=== PATIENT | male | born 1985 | race Caucasian/White ===

== ENCOUNTER → 2016-12-01 | Outpatient (CLI) | payer BC ==
[2016-12-01 13:40] LABS: BASO % 0.4 % (0.0-1.0); EOS % 0.6 % (0.0-3.0); LARGE UNSTAINED CELL # 0.1 K/mm3 (0.0-0.4); LARGE UNSTAINED CELL % 1.6 % (0.0-4.0); LYMPH # 2.3 K/mm3 (1.5-4.5); LYMPH % 24.4 % (24.0-44.0); MEAN CORPUSCULAR HEMOGLOBIN 31.5 pg (27.0-33.0); MEAN CORPUSCULAR HGB CONC 35.7 g/dl (32.0-36.5); MEAN CORPUSCULAR VOLUME 88.4 fl (80.0-96.0); MONO # 0.5 K/mm3 (0.0-0.8); MONO % 5.4 % (0.0-5.0); NEUTROPHILS % 67.6 % (36.0-66.0); PLATELET COUNT, AUTOMATED 218 k/mm3 (150-450); RED CELL DISTRIBUTION WIDTH 12.4 % (11.5-14.5); WHITE BLOOD COUNT 8.9 K/mm3 (4.0-10.0)
[2016-12-01 13:57] LABS: ALBUMIN/GLOBULIN RATIO 1.08 (1.00-1.93); ALKALINE PHOSPHATASE 50 U/L (45-117); ALT/SGPT 16 U/L (12-78); ANION GAP 8 MEQ/L (8-16); AST/SGOT 9 U/L (15-37); BILIRUBIN,TOTAL 0.4 MG/DL (0.2-1.0); BLOOD UREA NITROGEN 10 MG/DL (7-18); CALCIUM LEVEL 9.6 MG/DL (8.5-10.1); CARBON DIOXIDE LEVEL 29 MEQ/L (21-32); CHLORIDE LEVEL 107 MEQ/L (98-107); CREATININE FOR GFR 0.94 MG/DL (0.70-1.30); FREE T4 1.21 NG/DL (0.76-1.46); GLOMERULAR FILTRATION RATE > 60.0 (>60); GLUCOSE, FASTING 104 MG/DL (70-105); POTASSIUM SERUM 4.8 MEQ/L (3.5-5.1); SODIUM LEVEL 144 MEQ/L (136-145); TOTAL PROTEIN 7.7 GM/DL (6.4-8.2)
--- NOTE | 2016-12-01 20:55 | REP ---
Clinical: Abnormal weight loss . Comparison: None . Technique: PA and lateral. Findings: The mediastinum and cardiac silhouette are normal. The lung bragg are clear and without acute consolidation, effusion, or pneumothorax. The skeletal structures are intact and normal. Impression: 1. No acute cardiopulmonary process. Signed by Vj Nava MD 12/01/2016 08:47 P
== END ==
LOC: M SMT 11:00
PROVIDERS: ATTEND Physician Assistant
DX: R63.4 Abnormal weight loss (principal); F41.1 Generalized anxiety disorder

== ENCOUNTER 2018-03-03 09:55 | Outpatient (RCR) | payer BC | END 2018-03-04 | LOC: M OUTALCOH 09:55 | DX: Z03.89 Encounter for observation for other suspected diseases and conditions ruled out (principal) ==

== ENCOUNTER 2018-03-10 14:21 | Outpatient (RCR) | payer BC | END 2018-04-04 | LOC: M OUTALCOH 14:21 | PROVIDERS: ATTEND Psychiatry & Neurology Psychiatry | DX: Z03.89 Encounter for observation for other suspected diseases and conditions ruled out (principal) ==

== ENCOUNTER → 2018-03-24 | Outpatient (REF) | payer BC | LOC: M LAB REF 09:23 | PROVIDERS: ATTEND Physician Assistant | DX: J02.9 Acute pharyngitis, unspecified (principal) ==

== ENCOUNTER 2019-04-24 14:41 | Emergency (ER) | payer BC ==
[~2019-04-24] VITALS: Ht 182.9 cm; Wt 74.0 kg
[2019-04-24] MEDS ORDERED: PERCOCET 5MG/325MG TAB PO ONE (16:30)
[2019-04-24 16:55] LABS: BASO # 0.1 10^3/uL (0.0-0.2); BASO % 0.5 % (0.0-1.0); EOS % 0.3 % (0.0-3.0); HEMATOCRIT 45.2 % (42.0-52.0); LYMPH # 2.2 10^3/uL (1.5-5.0); LYMPH % 19.4 % (24.0-44.0); MEAN CORPUSCULAR HEMOGLOBIN 28.8 pg (27.0-33.0); MEAN CORPUSCULAR HGB CONC 33.2 g/dl (32.0-36.5); MEAN CORPUSCULAR VOLUME 86.8 fl (80.0-96.0); MONO # 0.6 10^3/uL (0.0-0.8); MONO % 5.6 % (0.0-5.0); NEUTROPHILS # 8.5 10^3/uL (1.5-8.5); NEUTROPHILS % 73.9 % (36.0-66.0); PLATELET COUNT, AUTOMATED 244 10^3/uL (150-450); RED BLOOD COUNT 5.21 10^6/uL (4.30-6.10); WHITE BLOOD COUNT 11.5 10^3/uL (4.0-10.0)
--- NOTE | 2019-04-24 17:02 | REP ---
Left knee four views : There is no fracture or dislocation. Mineralization and joint spaces are normal. A small bone cysts noted in the distal femur incidentally. There are no calcifications or foreign bodies. This questionably a suprapatellar effusion. Correlate with clinical findings. If felt clinically indicated, this could be confirmed by ultrasound or CT or MRI. Impression: Questionable joint effusion. Small bone cyst. Electronically Signed by Chase Avery MD 04/24/2019 04:54 P
[2019-04-24 17:08] LABS: BLOOD UREA NITROGEN 10 MG/DL (7-18); CALCIUM LEVEL 9.4 MG/DL (8.5-10.1); CARBON DIOXIDE LEVEL 26 MEQ/L (21-32); CHLORIDE LEVEL 104 MEQ/L (98-107); CREATININE FOR GFR 1.02 MG/DL (0.70-1.30); GLOMERULAR FILTRATION RATE > 60.0 (>60); GLUCOSE, FASTING 98 MG/DL (70-100); POTASSIUM SERUM 4.1 MEQ/L (3.5-5.1); SODIUM LEVEL 138 MEQ/L (136-145); URIC ACID 5.6 MG/DL (3.5-7.2)
[2019-04-24] MEDS ORDERED: LIDOCAINE 1% SDV INJ 30 ML VIAL SC SCH (17:30)
[2019-04-24] MEDS ORDERED: LIDOCAINE 2% MDV 20 ML VIAL SC ONE (18:15)
[2019-04-24] MEDS ORDERED: LIDOCAINE 1% MDV 20ML VIAL As Ordered ONE (18:19)
[2019-04-24 18:53] LABS: CRYSTALS, BODY FLUID NONE SEEN (NONE SEEN); SOURCE, BODY FLUID LFT KNEE; SOURCE, BODY FLUID CRYSTALS LFT KNEE; SYNOVIAL FLUID COLOR YELLOW (YELLOW)
[2019-04-24] MEDS ORDERED: LIDOCAINE 1% MDV 20ML VIAL SC ONE (19:00)
[2019-04-24 19:06] LABS: SOURCE, BODY FLUID GLUCOSE LFT KNEE; SOURCE, BODY FLUID URIC ACID LFT KNEE
[2019-04-24] MEDS ORDERED: BACT800T5 PO (20:27)
[2019-04-24] MEDS ORDERED: PERC5TAB12 PO (20:27)
[2019-04-24] MEDS ORDERED: COLC1TAB13 PO (20:27)
[2019-04-24] MEDS ORDERED: BACTRIM 160MG/800MG DS TAB PO ONE (20:30)
[2019-04-24] MEDS ORDERED: COLCHICINE 0.6 MG TAB PO ONE (20:30)
[2019-04-24 20:34] VITALS: BP 148/89
[2019-04-25 12:35] LABS: BODY FLUID RHEUMATOID SCREEN NEGATIVE (NEGATIVE)
[2019-04-25 12:36] LABS: MUCIN CLOT TEST 4+ (4+)
== END 2019-04-24 20:53 | disposition home or self-care (01) ==
LOC: M ED 14:41
DX: L03.116 Cellulitis of left lower limb (principal); M25.462 Effusion, left knee; M85.68 Other cyst of bone, other site; F17.200 Nicotine dependence, unspecified, uncomplicated; Z79.899 Other long term (current) drug therapy

== ENCOUNTER → 2020-08-08 | Outpatient (REF) | payer BC ==
[~2020-08-08] MED LIST: BACT800T5 PO; COLC0.6T47 PO; PERC5TAB12 PO
== END ==
LOC: M LAB REF 21:15
PROVIDERS: ATTEND Physician Assistant
DX: J02.9 Acute pharyngitis, unspecified (principal)

== ENCOUNTER → 2020-08-14 | Outpatient (REF) | payer BC | LOC: M LAB REF 09:53 | PROVIDERS: ATTEND Physician Assistant | DX: R19.7 Diarrhea, unspecified (principal); K92.1 Melena ==

== ENCOUNTER 2020-10-23 08:35 | Emergency (ER) | payer BC ==
[~2020-10-23] VITALS: Ht 182.9 cm; Wt 72.7 kg
[2020-10-23] MEDS ORDERED: VANC125C10 (08:42)
[2020-10-23] MEDS ORDERED: NS 1,000 ML IV ONE (09:10)
[2020-10-23 09:37] LABS: BASO # 0.1 10^3/uL (0.0-0.2); BASO % 1.1 % (0.0-1.0); EOS # 0.1 10^3/uL (0.0-0.5); EOS % 0.8 % (0.0-3.0); HEMATOCRIT 48.9 % (42.0-52.0); HEMOGLOBIN 17.1 g/dl (13.5-17.5); LYMPH # 1.8 10^3/uL (1.5-5.0); LYMPH % 28.3 % (24.0-44.0); MEAN CORPUSCULAR VOLUME 91.4 fl (80.0-96.0); MONO # 0.5 10^3/uL (0.0-0.8); MONO % 7.8 % (2.0-8.0); NEUTROPHILS % 61.5 % (36.0-66.0); PLATELET COUNT, AUTOMATED 236 10^3/uL (150-450); RED BLOOD COUNT 5.35 10^6/uL (4.30-6.10); WHITE BLOOD COUNT 6.5 10^3/uL (4.0-10.0)
[2020-10-23 10:39] LABS: ALBUMIN 3.8 GM/DL (3.2-5.2); ALT/SGPT 45 U/L (12-78); BILIRUBIN,DIRECT 0.2 MG/DL (0.0-0.2); BILIRUBIN,TOTAL 0.7 MG/DL (0.2-1.0); BLOOD UREA NITROGEN 9 MG/DL (7-18); CALCIUM LEVEL 9.2 MG/DL (8.5-10.1); CARBON DIOXIDE LEVEL 24 MEQ/L (21-32); CHLORIDE LEVEL 109 MEQ/L (98-107); CREATININE FOR GFR 1.02 MG/DL (0.70-1.30); GLOMERULAR FILTRATION RATE > 60.0 (>60); GLUCOSE, FASTING 96 MG/DL (70-100); LIPASE 149 U/L (73-393); POTASSIUM SERUM 4.1 MEQ/L (3.5-5.1); SODIUM LEVEL 141 MEQ/L (136-145); TOTAL PROTEIN 7.5 GM/DL (6.4-8.2)
[2020-10-23] MEDS ORDERED: ISOVUE-370 76% 100ML VIAL As Ordered ONE (10:41)
--- NOTE | 2020-10-23 11:24 | REP ---
INDICATION: abd pain, diarrhea, h/o c.diff. COMPARISON: None. TECHNIQUE: Bolus 100 mL Isovue 370 with coronal and sagittal reconstructions provided. FINDINGS: CT abdomen: Lung bases show no acute infiltrate effusion or nodule. Some minor dependent atelectatic change deep sulcus left lower lobe. Heart is not enlarged. There is no pericardial thickening or effusion and no definite hiatal hernia. There is no hepatosplenomegaly, focal hepatic or splenic mass nor intrahepatic biliary dilatation. No upper abdominal ascites. The gallbladder shows no calcified stone or mass. Pancreas shows no abnormal ductal dilatation, calcification, mass, peripancreatic adenopathy or fluid collection. Adrenal glands are normal. Kidneys show symmetric enhancement without mass, stone, cyst or hydronephrosis no perinephric edema. The aorta is without aneurysm or dissection. No periaortic, mesenteric or other retroperitoneal pathologic sized lymph adenopathy. Some of proximal small bowel loops slight dilatation and wall thickening as a nonspecific finding. There are no dilated loops with air-fluid levels, mass or mesenteric edema/fluid. There is a retrocecal appendix evident which is normal. The right, transverse, flexures and left colon were unremarkable. No inflammatory changes to suggest colitis or diverticulitis in the abdominal portion of colon. Lung window review of all CT slices shows no perforation or free air. The bone windows show the lumbar spine, posterior elements and visualized ribs intact. CT pelvis: The bony sacrum, SI joints, pelvis and hips were unremarkable. The distal left colon and sigmoid shows some muscular hypertrophy or wall thickening but this is mild and without evidence for a diverticulosis. Mild distal colitis cannot be excluded. Bladder shows normal distention without wall thickening, mass or stone the distal ureters show no dilatation or stone. There is no ventral or inguinal hernia nor pathologic sized inguinal adenopathy. No pelvic lymphadenopathy. Small bowel loops in the pelvis were unremarkable. IMPRESSION: 1. Appendix is normal in the colon from cecum to the mid left colon is unremarkable. 2. Distal left colon and sigmoid show some muscular hypertrophy or mild wall thickening. I cannot completely exclude possibility of early colitis. There is no ascites, perforation or abscess. 3. Some nonspecific wall thickening of proximal jejunal loops in the left upper quadrant but without inflammatory changes in the adjacent mesentery. 4. No abdominal or pelvic adenopathy or mass. Solid organs in the upper abdomen are unremarkable. The gallbladder as well as the stomach were intact. <Electronically signed by Emir Armando > 10/23/20 1125
[2020-10-23 12:20] VITALS: BP 163/90
== END 2020-10-23 12:25 | disposition home or self-care (01) ==
LOC: M ED 08:35
DX: K51.918 Ulcerative colitis, unspecified with other complication (principal); R19.7 Diarrhea, unspecified; F17.200 Nicotine dependence, unspecified, uncomplicated; F12.10 Cannabis abuse, uncomplicated; Z86.19 Personal history of other infectious and parasitic diseases
CPT/HCPCS: 74177; 80048; 80076; 83605; 83690; 85025; 96360; 96361; 99284; Q9967

== ENCOUNTER → 2020-11-06 | Outpatient (REF) | payer BC ==
[~2020-11-06] MED LIST changes: +VANC125C10
== END ==
LOC: M LAB REF 14:05
PROVIDERS: ATTEND Physician Assistant
DX: R10.9 Unspecified abdominal pain (principal); R19.7 Diarrhea, unspecified

== ENCOUNTER → 2021-03-05 | Outpatient (CLI) | payer BC | LOC: M OUTALCOH 08:27 | PROVIDERS: ATTEND Psychiatry & Neurology Psychiatry | DX: Z03.89 Encounter for observation for other suspected diseases and conditions ruled out (principal) ==

== ENCOUNTER 2021-03-19 13:23 | Outpatient (RCR) | payer BC | END 2021-04-04 | LOC: M OUTALCOH 13:23 | PROVIDERS: ATTEND Psychiatry & Neurology Psychiatry | DX: F10.20 Alcohol dependence, uncomplicated (principal); Z72.0 Tobacco use ==

== ENCOUNTER 2021-04-30 15:00 | Outpatient (RCR) | payer BC | END 2021-05-05 | LOC: M OUTALCOH 15:00 | PROVIDERS: ATTEND Psychiatry & Neurology Psychiatry | DX: F10.20 Alcohol dependence, uncomplicated (principal); Z72.0 Tobacco use ==

== ENCOUNTER 2021-05-14 15:00 | Outpatient (RCR) | payer BC | END 2021-06-02 | LOC: M OUTALCOH 15:00 | PROVIDERS: ATTEND Psychiatry & Neurology Psychiatry | DX: F10.20 Alcohol dependence, uncomplicated (principal); Z72.0 Tobacco use ==

== ENCOUNTER → 2021-06-04 | Outpatient (CLI) | payer OTHER ==
[~2021-06-04] MED LIST changes: +ISOVUE-300 61% 50ML VIAL As Ordered ONE; +LIDOCAINE 1% MDV 20ML VIAL As Ordered ONE; +PROHANCE 279.3MG/ML 5ML VIAL As Ordered ONE
== END ==
LOC: M RADPRO 06:35
PROVIDERS: ATTEND Physician Assistant Surgical
DX: R93.7 Abnormal findings on diagnostic imaging of other parts of musculoskeletal system (principal); S43.005A Unspecified dislocation of left shoulder joint, initial encounter
CPT/HCPCS: 23350; 73040; 73223; A9576; Q9967

== ENCOUNTER 2021-06-13 14:02 | Outpatient (RCR) | payer BC, OTHER ==
[~2021-06-13 14:02] MED LIST changes: -ISOVUE-300 61% 50ML VIAL As Ordered ONE; -LIDOCAINE 1% MDV 20ML VIAL As Ordered ONE; -PROHANCE 279.3MG/ML 5ML VIAL As Ordered ONE
== END 2021-07-03 ==
LOC: M OUTALCOH 14:02
PROVIDERS: ATTEND Psychiatry & Neurology Psychiatry
DX: F10.20 Alcohol dependence, uncomplicated (principal); Z72.0 Tobacco use

== ENCOUNTER → 2021-07-30 | Outpatient (REF) | payer BC | LOC: M LAB REF 16:17 | PROVIDERS: ATTEND Physician Assistant | DX: R50.9 Fever, unspecified (principal) ==